=== PATIENT | male | born 1960 | race Caucasian/White ===

== ENCOUNTER 2021-06-18 14:04 | Outpatient (CLI) | payer OTHER, MEDICARE, SELFPAY ==
--- NOTE | 2021-06-18 14:37 | MR_ITS ---
WS: [id number] MRI THORACIC SPINE WITHOUT CONTRAST TECHNIQUE: Sagittal T1, T2 and STIR imaging. Axial T2 imaging. Noncontrast imaging obtained. CLINICAL INFORMATION: PAIN IN T SPINE COMPARISON: None. FINDINGS: Mild thoracic kyphosis. No acute compression. Cord signal is normal. Prominent LEFT pericentral disc protrusion LEFT T9-T10 with impingement on the LEFT ventral thoracic cord and mild central canal sten osis. Disc material measures approximately 5 x 13 mm AP by craniocaudal. Peripheral surrounding susce ptibility artifact likely due to calcification. Additional small protrusions with slight indentation on the thoracic cord at T4-T5, T6-T7, T7-T8 Additional small shallow protrusions at T3-T4, T5-T6, and T8-T9. Mild LEFT T11-T12 foraminal narrowi ng. Moderate facet arthropathy lower thoracic spine. Normal caliber thoracic aorta. MR/MR thoracic spin wo con* [id number] IMPRESSION: 1. Prominent LEFT pericentral disc protrusion T9-T10 with indentation LEFT viv tral thoracic cord and mild central canal stenosis. Disc material measures appr oximately 5.3 x 13.6 mm AP by craniocaudal. Cord signal is normal. This may be partially calcified. 2. Numerous additional small disc protrusions with indentation on the thoracic cord more prominent at T4-T5, T6-T7, and T7-T8 3. Moderate facet arthropathy lower thoracic spine. 4. Mild LEFT T11-T12 bony foraminal narrowing.
== END 2021-06-18 14:05 | disposition home or self-care (01) ==
LOC: RAD 14:10
PROVIDERS: PCP Family Medicine; Visit Provider Family Medicine
DX: M47.814 Spondylosis without myelopathy or radiculopathy, thoracic region (principal); M51.24 Other intervertebral disc displacement, thoracic region; M48.04 Spinal stenosis, thoracic region
CPT/HCPCS: 72146

== ENCOUNTER 2021-08-20 06:00 | Outpatient (RCR) | payer OTHER, MEDICARE, SELFPAY | END 2021-09-09 23:59 | disposition home or self-care (01) | LOC: WPT 06:00 | PROVIDERS: PCP Family Medicine; Referring Provider Student in an Organized Health Care Education/Training Program; Visit Provider Student in an Organized Health Care Education/Training Program | DX: M54.6 Pain in thoracic spine (principal) | CPT/HCPCS: 97110; 97140; 97161 ==